=== PATIENT | male | born 1980 | race Caucasian/White ===

== ENCOUNTER 2020-12-03 08:28 | Day surgery (SDC) | payer OTHER ==
[~2020-12-03] VITALS: Ht 177.8 cm; Wt 98.6 kg
[2020-12-03 09:02] VITALS: BP 132/87; PULSE 68; TEMP 98.2
[2020-12-03] MEDS ORDERED: PRINIVIL20 MG PO (09:12)
[2020-12-03] MEDS ORDERED: HCTZ 25MG TAB25 MG PO (09:13)
--- NOTE | 2020-12-03 09:13 | NUR ---
TO RM AT 0835- CALL LIGHT IN REACH AT BEDSIDE.
[2020-12-03 10:25] VITALS: BP 117/78; PULSE 80
--- NOTE | 2020-12-03 10:25 | NUR ---
PATIENT TO RECOVERY BAY 5 POST PROCEDURE VIA CART BY JR RUIZ. UP TO BATHROOM. AMBULATES TO CHAIR ON OWN. REPORT FROM JR RUIZ. MADE COMFORTABLE IN CHAIR, WARM BLANKETS GIVEN. VITAL SIGNS TAKEN, WNL. GIVEN WATER TO DRINK. CALL LIGHT WITHIN REACH.
[2020-12-03 10:45] VITALS: BP 123/86; PULSE 66
--- NOTE | 2020-12-03 10:45 | NUR ---
DR AT BEDSIDE TO DISCUSS PROCEDURE AND RESULTS. 1055 LAB AT BEDSIDE TO DRAW LAB
--- NOTE | 2020-12-03 11:00 | NUR ---
IV SITE TO RIGHT WRIST DISCONTINUED. NO REDNESS OR SWELLING. SECURED WITH COTTONBALL AND COBAN
[2020-12-03 11:03] LABS: HEMOGLOBIN 11.3 g/dl (13.5-18.0); MEAN CELL VOLUME 86 fl (80.0-100.0); MEAN CORPUSCULAR HEMOGLOBIN 28 pg (27.0-31.0); MEAN CORPUSCULAR HGB CONC 33 g/dl (33.0-37.0); MEAN PLATELET VOLUME 8.8 fl (7.4-10.4); PLATELET COUNT 422 K/mm3 (130-400); RED BLOOD COUNT 4.03 M/mm3 (4.20-5.60)
--- NOTE | 2020-12-03 11:05 | NUR ---
DISMISSAL INSTRUCTIONS REVIEWED WITH PATIENT. HARD COPIES GIVEN WITH VERBAL EXPLANATION. PATIENT GIVES VERBAL UNDERSTANDING AND SIGNS CONFIRMATION. DENIES QUESTIONS.
[2020-12-03 11:06] LABS: HEMATOCRIT 34.6 % (42.0-52.0)
--- NOTE | 2020-12-03 11:15 | NUR ---
PATIENT CHANGES OUT OF GOWN. ESCORTED OFF OF UNIT VIA WHEELCHAIR TO WAITING DIRECTOR MULTIMEDIA BY NOVA RN. HELPED TO CAR.
[2020-12-03 11:17] LABS: ALBUMIN 3.9 gm/dL (3.5-5.0); BILIRUBIN,TOTAL 0.6 mg/dL (0.0-1.0); CALCIUM 8.8 mg/dL (8.4-10.2); CREATININE, serum 0.94 (0.66-1.25); TOTAL PROTEIN 6.7 gm/dL (6.4-8.2)
[2020-12-03 11:18] LABS: IRON,SERUM 25 ug/dL (35-150)
[2020-12-03 11:27] LABS: TOTAL IRON BINDING CAPACITY 467 ug/dL (261-462)
== END 2020-12-03 11:15 | disposition home or self-care (01) ==
LOC: SDCO 08:28
PROVIDERS: Internal Medicine Gastroenterology
DX: K92.1 Melena (principal); K21.00 Gastro-esophageal reflux disease with esophagitis, without bleeding; K22.8 Other specified diseases of esophagus; K44.9 Diaphragmatic hernia without obstruction or gangrene; D50.0 Iron deficiency anemia secondary to blood loss (chronic); Q89.01 Asplenia (congenital); I10 Essential (primary) hypertension
CPT/HCPCS: J2250; J2704; J7120

== ENCOUNTER → 2020-12-27 | Outpatient (CLI) | payer OTHER ==
[~2020-12-27] MED LIST: HCTZ 25MG TAB25 MG PO; PRINIVIL20 MG PO
== END ==
LOC: COL.RAD 12-23 12:00
DX: K92.1 Melena (principal)
CPT/HCPCS: A9512